=== PATIENT | male | born 1980 | race Caucasian/White ===

== ENCOUNTER 2022-12-16 20:05 | Inpatient (IN) | payer BC, MEDICAID ==
[~2022-12-16] VITALS: Ht 177.8 cm; Wt 119.6 kg
[2022-12-16 20:54] LABS: Basophils # (auto) 0 10 ^3/uL (0-0.2); Basophils % (auto) 0.5 % (0.0-2.0); Eosinophils # (auto) 0.2 10 ^3/uL (0-0.8); Eosinophils % (auto) 2.2 % (0.0-7.0); Hematocrit 46.6 % (41.0-53.0); Hemoglobin 15.7 g/dL (13.5-17.5); Lymphocytes # (auto) 2.9 10 ^3/uL (0.4-5.4); Lymphocytes % (auto) 30.7 % (10.0-50.0); Mean Corpuscular Hemoglobin 29.5 pg (28.0-32.0); Mean Corpuscular Hgb Conc. 33.8 g/dL (32.0-36.0); Mean Corpuscular Volume 87.3 fL (80.0-100.0); Monocytes # (auto) 0.8 10 ^3/uL (0-1.3); Monocytes % (auto) 8.5 % (0.0-12.0); Neutrophils # (auto) 5.5 10 ^3/uL (1.6-8.6); Neutrophils % (auto) 58.1 % (37.0-80.0); Red Blood Cells 5.34 10^6/uL (4.5-5.90); Red Cell Distribution Width 13.1 % (11.8-14.3); White Blood Cell 9.6 10^3/uL (4.4-10.8)
[2022-12-16 21:15] VITALS: PULSE 86; RESP 16; O2SAT 97
[2022-12-16 21:20] LABS: Alanine Aminotransferase 104 U/L (7-40); Albumin 4.7 g/dL (3.2-4.8); Alkaline Phosphatase 94 U/L (46-116); Anion Gap 8 (5-15); Aspartate Aminotransferase 35 U/L (13-40); BUN/Creatinine Ratio 12.3 (10.0-20.0); Blood Urea Nitrogen 15 mg/dL (9-23); Calcium 9.4 mg/dL (8.7-10.4); Carbon Dioxide 26 mmol/L (20-30); Chloride 105 mmol/L (98-107); Glucose 127 mg/dL (74-106); Potassium 3.6 mmol/L (3.5-5.1); Sodium 139 mmol/L (136-145)
[2022-12-16 21:21] LABS: Bilirubin, Total 0.4 mg/dL (0.2-1.0); Total Protein 7.4 g/dL (5.7-8.2)
[2022-12-16] MEDS ORDERED: ASPirin 325 MG TAB PO ONE (21:30)
[2022-12-16 21:38] LABS: INR 0.99 (0.9-1.15); Prothrombin Time 10.4 sec (9.3-11.8)
[2022-12-17] MEDS ORDERED: ONDANSETRON HCL 4 MG/2 ML VIAL IV PRN (00:45)
[2022-12-17] MEDS ORDERED: ACETAMINOPHEN 325 MG TAB PO PRN (00:45)
[2022-12-17] MEDS ORDERED: TEMAZEPAM 15 MG CAP PO PRN (00:45)
[2022-12-17 05:34] LABS: Anion Gap 6 (5-15); Carbon Dioxide 26 mmol/L (20-30); Chloride 105 mmol/L (98-107); Potassium 4.3 mmol/L (3.5-5.1); Sodium 137 mmol/L (136-145)
[2022-12-17 05:35] LABS: Calcium 9.3 mg/dL (8.7-10.4)
[2022-12-17 05:40] LABS: BUN/Creatinine Ratio 10.1 (10.0-20.0); Blood Urea Nitrogen 11 mg/dL (9-23); Glucose 117 mg/dL (74-106)
[2022-12-17] MEDS ORDERED: ASPirin 81 mg TAB PO SCH ×2 (10:00→10:15)
[2022-12-17 10:10] LABS: LDL Cholesterol 153 mg/dL (< 100); Triglycerides 173 mg/dL (< 150)
[2022-12-17 10:12] LABS: Cholesterol 219 mg/dL (< 200); HDL Cholesterol 33 mg/dL (40-59)
[2022-12-17] MEDS ORDERED: LORazepam 2MG/ML-1ML VIAL IV PRN (10:15)
[2022-12-17 18:48] VITALS: O2SAT 95
[2022-12-17 20:00] VITALS: BP 132/87; PULSE 85; RESP 18; TEMP 98.8; O2SAT 100
[2022-12-17] MEDS: ATORVASTATIN 20 MG TAB PO SCH (20:40)
[2022-12-17 22:00] VITALS: BP 127/82; PULSE 64; RESP 20; TEMP 98.7; O2SAT 100
[2022-12-17] MEDS ORDERED: ATORVASTATIN 20 MG TAB PO SCH (22:00)
[2022-12-18] VITALS (8 sets, daily range): BP systolic 119–133; BP diastolic 75–90; PULSE 67–89; RESP 18–19; TEMP 97.8–98.7; O2SAT 95–100
[2022-12-18] MEDS: CLOPIDOGREL BISULFATE 75 MG TAB PO SCH (08:40)
[2022-12-18] MEDS: ASPirin 81 mg TAB PO SCH (08:40)
[2022-12-18 10:27] LABS: Basophils # (auto) 0 10 ^3/uL (0-0.2); Basophils % (auto) 0.5 % (0.0-2.0); Eosinophils # (auto) 0.2 10 ^3/uL (0-0.8); Eosinophils % (auto) 2.1 % (0.0-7.0); Hematocrit 47.9 % (41.0-53.0); Hemoglobin 16.2 g/dL (13.5-17.5); Lymphocytes # (auto) 2.6 10 ^3/uL (0.4-5.4); Lymphocytes % (auto) 33.8 % (10.0-50.0); Mean Corpuscular Hemoglobin 29.7 pg (28.0-32.0); Mean Corpuscular Hgb Conc. 33.9 g/dL (32.0-36.0); Mean Corpuscular Volume 87.5 fL (80.0-100.0); Monocytes # (auto) 0.7 10 ^3/uL (0-1.3); Monocytes % (auto) 8.6 % (0.0-12.0); Neutrophils # (auto) 4.3 10 ^3/uL (1.6-8.6); Red Blood Cells 5.48 10^6/uL (4.5-5.90); Red Cell Distribution Width 12.9 % (11.8-14.3); White Blood Cell 7.8 10^3/uL (4.4-10.8)
[2022-12-18 10:38] LABS: Anion Gap 6 (5-15); Carbon Dioxide 27 mmol/L (20-30); Chloride 104 mmol/L (98-107); Potassium 4.1 mmol/L (3.5-5.1); Sodium 137 mmol/L (136-145)
[2022-12-18 10:39] LABS: Calcium 9.5 mg/dL (8.7-10.4)
[2022-12-18 10:44] LABS: Blood Urea Nitrogen 12 mg/dL (9-23); Glucose 106 mg/dL (74-106)
[2022-12-18] MEDS: ATORVASTATIN 20 MG TAB PO SCH (21:20)
[2022-12-19 05:00] VITALS: BP 110/76; PULSE 71; RESP 18; TEMP 98.3; O2SAT 98
[2022-12-19 06:56] LABS: Chloride 104 mmol/L (98-107); Potassium 4.1 mmol/L (3.5-5.1); Sodium 138 mmol/L (136-145)
[2022-12-19 06:57] LABS: Anion Gap 8 (5-15); Calcium 9.4 mg/dL (8.5-10.1); Carbon Dioxide 26 mmol/L (20-30)
[2022-12-19 07:02] LABS: BUN/Creatinine Ratio 12.5 (10.0-20.0); Blood Urea Nitrogen 13 mg/dL (9-23); Glucose 104 mg/dL (74-106)
[2022-12-19] MEDS: ASPirin 81 mg TAB PO SCH (08:43)
[2022-12-19] MEDS: CLOPIDOGREL BISULFATE 75 MG TAB PO SCH (08:43)
[2022-12-19 09:00] VITALS: BP 120/77; PULSE 80; RESP 18; TEMP 98.2; O2SAT 96
[2022-12-19 11:11] VITALS: BP 120/77; PULSE 80; RESP 18; TEMP 98.2; O2SAT 96
== END 2022-12-19 12:00 | disposition home or self-care (01) | DRG 69 ==
LOC: ER 20:05 → OVERFLOW 12-17 00:41 → WEST WING 12-17 17:38
PROVIDERS: ADMIT Internal Medicine
DX: G45.9 Transient cerebral ischemic attack, unspecified (principal); I50.20 Unspecified systolic (congestive) heart failure; E66.01 Morbid (severe) obesity due to excess calories; R73.03 Prediabetes; E78.5 Hyperlipidemia, unspecified; R74.01 Elevation of levels of liver transaminase levels; Z68.37 Body mass index [BMI] 37.0-37.9, adult; Z79.82 Long term (current) use of aspirin; Z79.899 Other long term (current) drug therapy
CPT/HCPCS: 36415; 70450; 70551; 71045; 80048; 80053; 80061; 82306; 82607; 83036; 84443; 84460; 84484; 85025; 85610; 93005; 93306; 93886; 94660; 99291; G0378

== ENCOUNTER 2023-02-05 07:00 | Day surgery (SDC) | payer BC ==
[2023-02-04 09:43] LABS: Basophils # (auto) 0 10 ^3/uL (0-0.2); Basophils % (auto) 0.3 % (0.0-2.0); Eosinophils # (auto) 0.2 10 ^3/uL (0-0.8); Eosinophils % (auto) 2.1 % (0.0-7.0); Hematocrit 45.6 % (41.0-53.0); Hemoglobin 15.2 g/dL (13.5-17.5); Lymphocytes # (auto) 2.6 10 ^3/uL (0.4-5.4); Lymphocytes % (auto) 34.1 % (10.0-50.0); Mean Corpuscular Hgb Conc. 33.3 g/dL (32.0-36.0); Mean Corpuscular Volume 87.1 fL (80.0-100.0); Monocytes # (auto) 0.6 10 ^3/uL (0-1.3); Monocytes % (auto) 7.6 % (0.0-12.0); Neutrophils # (auto) 4.3 10 ^3/uL (1.6-8.6); Neutrophils % (auto) 55.9 % (37.0-80.0); Nucleated Red Blood Cells % 0.1 %; Red Blood Cells 5.24 10^6/uL (4.5-5.90); Red Cell Distribution Width 12.8 % (11.8-14.3); White Blood Cell 7.7 10^3/uL (4.4-10.8)
[2023-02-04 09:57] LABS: Alanine Aminotransferase 48 U/L (7-40); Albumin 4.9 g/dL (3.2-4.8); Alkaline Phosphatase 83 U/L (46-116); Anion Gap 6 (5-15); Aspartate Aminotransferase 22 U/L (13-40); BUN/Creatinine Ratio 9.5 (10.0-20.0); Bilirubin, Total 1.1 mg/dL (0.2-1.0); Blood Urea Nitrogen 10 mg/dL (9-23); Calcium 9.8 mg/dL (8.5-10.1); Carbon Dioxide 27 mmol/L (20-30); Chloride 106 mmol/L (98-107); Glucose 106 mg/dL (74-106); Potassium 4.3 mmol/L (3.5-5.1); Sodium 139 mmol/L (136-145); Total Protein 7.3 g/dL (5.7-8.2)
[2023-02-04 10:02] LABS: INR 1.06 (0.9-1.15); Prothrombin Time 11.1 sec (9.3-11.8)
[~2023-02-05] VITALS: Ht 177.8 cm; Wt 112.0 kg
[2023-02-05] VITALS (8 sets, daily range): BP systolic 109–125; BP diastolic 67–87; PULSE 56–64; RESP 12–18; O2SAT 20–97
[~2023-02-05 07:00] MED LIST: ASPI-543 PO; ATOR-47 PO; CLOP75TA70 PO
[2023-02-05] MEDS ORDERED: IODIXANOL 320MG/ML 100ML BTL IV ONE (07:58)
[2023-02-05] MEDS ORDERED: LIDOCAINE 2%HCL (LOCAL ANESTH.) INJ 20ML MDV ONE (07:58)
[2023-02-05] MEDS ORDERED: HEPARIN IN NS 1000Units/500mL 1,500 ML ONE (07:59)
[2023-02-05] MEDS ORDERED: HEPARIN SODIUM (PORCINE) 5000 UNITS/ML 1ML VIAL ONE (08:16)
[2023-02-05] MEDS ORDERED: ANGIOMAX 250 MG VIAL IV ONE (08:16)
[2023-02-05] MEDS ORDERED: VERAPAMIL 2.5MG/ML INJ 2ML VIAL IV ONE (08:17)
[2023-02-05] MEDS ORDERED: fentaNYL CITRATE 100 MCG/2 ML VL ONE (08:17)
[2023-02-05] MEDS ORDERED: SODIUM CHL 0.9% 0 ML ONE (08:18)
[2023-02-05] MEDS ORDERED: MIDAZOLAM HCL 2MG/2ML 2ml VIAL (1mg/ml) ONE (08:18)
== END 2023-02-05 10:57 | disposition home or self-care (01) ==
LOC: CATH 07:00
PROVIDERS: ATTEND Student in an Organized Health Care Education/Training Program
DX: R94.39 Abnormal result of other cardiovascular function study (principal); R06.02 Shortness of breath; E78.5 Hyperlipidemia, unspecified; G47.33 Obstructive sleep apnea (adult) (pediatric); E66.01 Morbid (severe) obesity due to excess calories; Z98.890 Other specified postprocedural states
CPT/HCPCS: 36415; 80053; 85025; 85610; 85730; 93458; C1769; C1887; C1894; J1644; J2250; J3010; J7030; Q9967; 99152

== ENCOUNTER → 2023-09-23 | Outpatient (CLI) | payer BC | END | disposition home or self-care (01) | LOC: XYW 12:58 | PROVIDERS: ATTEND Student in an Organized Health Care Education/Training Program | DX: I51.89 Other ill-defined heart diseases (principal); I25.10 Atherosclerotic heart disease of native coronary artery without angina pectoris | CPT/HCPCS: 93306 ==

== ENCOUNTER 2024-11-17 08:12 | Outpatient (CLI) | payer BC ==
[2024-11-17 09:01] LABS: Alanine Aminotransferase 20 U/L (7-40); Alkaline Phosphatase 63 U/L (46-116); Anion Gap 10 (5-15); BUN/Creatinine Ratio 15.8 (10.0-20.0); Blood Urea Nitrogen 18 mg/dL (9-23); Calcium 9.2 mg/dL (8.7-10.4); Carbon Dioxide 26 mmol/L (20-31); Chloride 106 mmol/L (98-107); Glucose 106 mg/dL (74-106); Potassium 4.2 mmol/L (3.5-5.1); Sodium 142 mmol/L (136-145); Total Protein 7.6 g/dL (5.7-8.2); Triglycerides 149 mg/dL (< 150)
[2024-11-17 09:02] LABS: Albumin 4.9 g/dL (3.2-4.8); Bilirubin, Total 0.8 mg/dL (0.2-1.0); Cholesterol 213 mg/dL (< 200); HDL Cholesterol 36 mg/dL (40-59)
== END 2024-11-17 17:00 | disposition home or self-care (01) ==
LOC: LAB 08:12
PROVIDERS: ATTEND Internal Medicine
DX: I10 Essential (primary) hypertension (principal); I42.8 Other cardiomyopathies; E78.5 Hyperlipidemia, unspecified
CPT/HCPCS: 36415; 80053; 80061